=== PATIENT | male | born 1950 | race Caucasian/White ===

== ENCOUNTER 2021-07-11 05:49 | Inpatient (IN) ==
[2021-07-11] MEDS ORDERED: *HR* HYDROcodone/Acet 7.5/325 mg TABLET PO PRN (06:17)
[2021-07-11] MEDS ORDERED: Naloxone 0.4 MG/ML INJ IVP PRN (06:17)
[2021-07-11] MEDS ORDERED: *HR* HYDROmorphone PF 0.5 MG/0.5 ML SYRINGE IVP PRN (06:17)
[2021-07-11] MEDS ORDERED: flumazeniL 0.5 MG/5 ML VIAL IVP PRN (06:17)
[2021-07-11] MEDS ORDERED: Ondansetron 4 MG/2 ML VIAL IVP PRN ×2 (06:17→07:03)
[2021-07-11] MEDS ORDERED: Ipratropium Neb 0.5 MG NEBULIZER IH PRN (06:17)
[2021-07-11] MEDS ORDERED: Promethazine 6.25 MG in Water for inj. (sterile) 20 ML IVPB PRN (06:17)
[2021-07-11] MEDS ORDERED: *HR* Labetalol 20 MG/4 ML SYRINGE IVP PRN (06:17)
[2021-07-11] MEDS ORDERED: Ipratropium/Albuterol Neb 3 ML IH ONE (06:17)
[2021-07-11] MEDS ORDERED: Lidocaine -MPF 4% 5 ML AMPUL ONE (06:44)
[2021-07-11] MEDS ORDERED: *HR* Succinylcholine 200 MG/10 ML VIAL IVP ONE (06:44)
[2021-07-11] MEDS ORDERED: *HR* Propofol 200 MG/20 ML VIAL IVP ONE (06:44)
[2021-07-11] MEDS ORDERED: Lidocaine HCL 4 ML Topical Solution (Laryng-O-Jet Kit Sterile Pak) TP ONE (06:44)
[2021-07-11] MEDS ORDERED: Ondansetron 4 MG/2 ML VIAL ONE (06:44)
[2021-07-11] MEDS ORDERED: *HR* Midazolam HCl 2 MG/2 ML VIAL ONE (06:44)
[2021-07-11] MEDS ORDERED: *HR* FentaNYL (PF) 100 MCG/2 ML VIAL ONE (06:44)
[2021-07-11] MEDS ORDERED: Ringers Solution, Lactated 1,000 ML IVC SCH ×2 (06:45→07:15)
[2021-07-11] MEDS ORDERED: Famotidine 20 MG TABLET PO ONE (07:00)
[2021-07-11] MEDS ORDERED: ROPIVACAINE/PF/NS 0.25% 1 EACH SYRINGE INTRAART ONE (07:01)
[2021-07-11] MEDS ORDERED: Ropivacaine/PF 0.5% 30 ML VIAL ONE (07:01)
[2021-07-11] MEDS ORDERED: *HR* OxyCODONE Immed Rel 5 MG TABLET PO PRN (07:03)
[2021-07-11] MEDS ORDERED: Sennosides 8.6 MG TABLET PO PRN (07:03)
[2021-07-11] MEDS ORDERED: MOM Conc 10 ML UD.LIQ PO PRN (07:03)
[2021-07-11] MEDS ORDERED: Vancomycin 1,000 MG VIAL ONE ×4 (07:07→09:19)
[2021-07-11] MEDS ORDERED: Povidone-Iodine 45 ML, Sodium Chloride IRRigation 1,000 ML IR ONE ×2 (07:15→07:30)
[2021-07-11] MEDS ORDERED: EPHEDrine 50 MG/ML VIAL ONE (08:08)
[2021-07-11 12:50] LABS: BUN/Creatinine Ratio 19 (6-26); Blood Urea Nitrogen 14 mg/dL (8-23); eGFR For African Americans > 60 (> 60); eGFR For Non-African Americans > 60 (> 60)
[2021-07-11] MEDS ORDERED: Vancomycin 1,250 MG/262.5 ML IV.SOLN IVPB SCH (13:00)
[2021-07-11] MEDS: Acetaminophen 325 MG TABLET PO SCH ×3 (13:07→23:54)
[2021-07-11] MEDS: Ketorolac 30 MG/ML VIAL IVP SCH ×3 (13:09→23:55)
[2021-07-11] MEDS: cefTRIAXone 2,000 MG in 0.9 % Sodium Chloride 20 ML IVPB SCH (13:11)
[2021-07-11] MEDS ORDERED: CeFAZolin 2 GM/100 ML BAG IVPB SCH (16:00)
[2021-07-11] MEDS: Gabapentin 400 MG CAPSULE PO SCH (20:07)
[2021-07-12] MEDS: Acetaminophen 325 MG TABLET PO SCH ×3 (05:53→18:31)
[2021-07-12] MEDS: Ketorolac 30 MG/ML VIAL IVP SCH ×3 (05:53→17:50)
[2021-07-12] MEDS: Multivit/Ca/Min/Fe/FA 1 TAB TABLET PO SCH (07:37)
[2021-07-12] MEDS: Gabapentin 400 MG CAPSULE PO SCH ×3 (07:37→20:10)
[2021-07-12] MEDS ORDERED: *HR* Warfarin 1 MG TABLET PO SCH (09:00)
[2021-07-12] MEDS ORDERED: (Omega-3/Dha/Epa/Fish Oil [Fish Oil 1,000 Mg Softgel] PO SCH (09:00)
[2021-07-12] MEDS ORDERED: Vancomycin 1,250 MG/262.5 ML IV.SOLN IVPB SCH (09:00)
[2021-07-12 12:03] LABS: Basophils % 0.2 %; Eosinophils # 0.1 K/mcL (0.0-0.6); Eosinophils % 0.5 %; Hematocrit 40.7 % (37.5-50.1); Immature Granulocytes % 0.3 % (0-4); Lymphocytes # 3.1 K/mcL (0.6-4.6); Lymphocytes % 29.8 %; Mean Corpuscular HGB Conc 32.7 g/dL (31.6-35.5); Mean Corpuscular Hemoglobin 32.8 pg (28.0-33.3); Mean Corpuscular Volume 100.5 fL (83.0-100.0); Mean Platelet Volume 10.1 fL (9.4-12.4); Monocytes # 1.1 K/mcL (0.0-1.3); Monocytes % 10.4 %; Neutrophils # 6.1 K/mcL (1.6-8.9); Platelet Count 179 K/mcL (140-400); Red Blood Count 4.05 M/mcL (4.19-5.50); Red Cell Distribution Width 13.1 % (11.5-14.5); Segmented Neutrophils % 58.8 %; White Blood Count 10.4 K/mcL (4.3-11.1)
[2021-07-12 12:04] LABS: Hemoglobin 13.3 g/dL (12.9-16.9)
[2021-07-12 12:17] LABS: BUN/Creatinine Ratio 20 (6-26); Blood Urea Nitrogen 14 mg/dL (8-23); C-Reactive Protein 17 mg/L (Less than 10); Calcium 9.2 mg/dL (8.6-10.3); Carbon Dioxide 30 mEq/L (23-29); Chloride 103 mEq/L (98-107); Glucose 119 mg/dL (70-105); Osmolality,Calculated 290 (280-300); Potassium 4.2 mEq/L (3.5-5.1); Sodium 139 mEq/L (136-145); eGFR For African Americans > 60 (> 60); eGFR For Non-African Americans > 60 (> 60)
[2021-07-12] MEDS: cefTRIAXone 2,000 MG in 0.9 % Sodium Chloride 20 ML IVPB SCH (13:04)
[2021-07-12] MEDS: *HR* Warfarin 3 MG TABLET PO SCH (18:30)
[2021-07-13] MEDS: Acetaminophen 325 MG TABLET PO SCH ×5 (00:24→23:17)
[2021-07-13] MEDS: Gabapentin 400 MG CAPSULE PO SCH ×3 (10:34→19:45)
[2021-07-13] MEDS: Multivit/Ca/Min/Fe/FA 1 TAB TABLET PO SCH (10:35)
[2021-07-13] MEDS: *HR* OxyCODONE Immed Rel 5 MG TABLET PO PRN ×2 (10:35→18:36)
[2021-07-13] MEDS: cefTRIAXone 2,000 MG in 0.9 % Sodium Chloride 20 ML IVPB SCH (10:48)
[2021-07-13] MEDS ORDERED: Lidocaine -MPF 1% 5 ML AMPUL INFILT ONE (11:14)
[2021-07-13] MEDS: *HR* Warfarin 3 MG TABLET PO SCH (18:29)
[2021-07-14] MEDS: Acetaminophen 325 MG TABLET PO SCH ×2 (06:01→13:17)
[2021-07-14] MEDS: *HR* OxyCODONE Immed Rel 5 MG TABLET PO PRN ×2 (06:03→13:20)
[2021-07-14 06:57] VITALS: O2SAT 93
[2021-07-14] MEDS ORDERED: cefTRIAXone 2,000 MG in 0.9 % Sodium Chloride 20 ML IVPB SCH (07:00)
[2021-07-14] MEDS: Multivit/Ca/Min/Fe/FA 1 TAB TABLET PO SCH (07:54)
[2021-07-14] MEDS: Gabapentin 400 MG CAPSULE PO SCH (07:54)
[2021-07-14 11:05] VITALS: BP 141/74; PULSE 71; TEMP 97.6
== END 2021-07-14 13:30 | disposition home health service (06) | DRG 483 ==
LOC: SDCAOSI 05:49 → 4WAOSI 10:42
PROVIDERS: ADMIT Orthopaedic Surgery; ATTEND Orthopaedic Surgery

== ENCOUNTER 2021-10-13 23:25 | Observation (INO) ==
[2021-10-14 00:35] LABS: INR 1.2; Prothrombin Time 13.1 Seconds (9.4-12.1)
[2021-10-14 00:38] LABS: BUN/Creatinine Ratio 12 (6-26); Blood Urea Nitrogen 8 mg/dL (8-23); Calcium 9.3 mg/dL (8.6-10.3); Carbon Dioxide 30 mEq/L (23-29); Chloride 104 mEq/L (98-107); Glucose 113 mg/dL (70-105); Osmolality,Calculated 287 (280-300); Potassium 3.7 mEq/L (3.5-5.1); Sodium 139 mEq/L (136-145); eGFR For African Americans > 60 (> 60); eGFR For Non-African Americans > 60 (> 60)
[2021-10-14 01:00] LABS: Basophils # 0.1 K/mcL (0.0-0.2); Basophils % 0.7 %; Eosinophils # 0.3 K/mcL (0.0-0.6); Eosinophils % 3.5 %; Hematocrit 32.7 % (37.5-50.1); Hemoglobin 10.9 g/dL (12.9-16.9); Immature Granulocytes % 0.4 % (0-4); Lymphocytes # 2.6 K/mcL (0.6-4.6); Lymphocytes % 28.4 %; Mean Corpuscular HGB Conc 33.3 g/dL (31.6-35.5); Mean Corpuscular Hemoglobin 32.7 pg (28.0-33.3); Mean Corpuscular Volume 98.2 fL (83.0-100.0); Mean Platelet Volume 10.7 fL (9.4-12.4); Monocytes # 1.1 K/mcL (0.0-1.3); Monocytes % 11.9 %; Platelet Count 226 K/mcL (140-400); Red Blood Count 3.33 M/mcL (4.19-5.50); Red Cell Distribution Width 13.2 % (11.5-14.5); Segmented Neutrophils % 55.1 %; White Blood Count 9.2 K/mcL (4.3-11.1)
[2021-10-14] MEDS ORDERED: *HR* OxyCODONE/APAP 5/325 TABLET PO ONE (01:51)
[2021-10-14] MEDS ORDERED: Naloxone 0.4 MG/ML INJ IVP PRN (02:38)
[2021-10-14] MEDS ORDERED: Acetaminophen 325 MG TABLET PO PRN (02:38)
[2021-10-14] MEDS ORDERED: Ondansetron 4 MG/2 ML VIAL IVP PRN (02:38)
[2021-10-14 07:38] VITALS: O2SAT 94
[2021-10-14 08:17] LABS: Hematocrit 32.9 % (37.5-50.1); Hemoglobin 10.9 g/dL (12.9-16.9); Mean Corpuscular HGB Conc 33.1 g/dL (31.6-35.5); Mean Corpuscular Volume 99.7 fL (83.0-100.0); Mean Platelet Volume 10.2 fL (9.4-12.4); Platelet Count 206 K/mcL (140-400); Red Cell Distribution Width 13.2 % (11.5-14.5)
[2021-10-14] MEDS ORDERED: *HR* OxyCODONE/APAP 5/325 TABLET PO PRN (12:20)
[2021-10-14 15:44] VITALS: BP 115/68; PULSE 68; TEMP 97.7
== END 2021-10-14 16:37 | disposition home or self-care (01) ==
LOC: 3ANU 23:25 → EMEROOARM 23:25 → SUATTDRO 10-14 02:19 → 3ANU 10-14 03:27
PROVIDERS: ADMIT Internal Medicine; ATTEND Internal Medicine